=== PATIENT | female | born 1985 | race Caucasian/White ===

== ENCOUNTER 2017-08-17 00:22 | Emergency (ER) | payer MEDICAID ==
[2017-08-17] MEDS ORDERED: HYDROCODONE/APAP 7.5/325MG TABLET PO ONE ×2 (00:27→01:10)
--- NOTE | 2017-08-17 00:34 | Emergency Department Record ---
History of Present Illness - General Chief Complaint: Fall Injury Time Seen by Provider: 08/17/17 00:26 Source: Patient Mode of Arrival: Wheelchair Limitations: No limitations - History of Present Illness Initial Comments: 32 yo female presents with left foot and ankle pain. She slipped on stairs and injured her left foot and ankle. She denies any other injuries. She was going down the steps and injured the foot and ankle. No prior left lank or foot injures. MD Complaint: Fall Onset/Timin -: Hour(s) Fall From: Down stairs (#) When Fall Occurred: 1 hour [facility] Fall Witnessed: No Place Fall Occurred: Home Loss of Consciousness: None Prolonged Down Time?: No Symptoms Prior to Fall: None Location - Extremities: Left: Ankle, Foot Severity: Mild Severity scale (1-10): >10 Quality: Aching Associated Symptoms: Unable to walk - Grace Coma Scale Eye Response: (4) Open spontaneously Motor Response: (6) Obeys commands Verbal Response: (5) Oriented Grace Total: 15 - Related Data Previous Rx's Medication Instructions Recorded Hydrocodone/Acetaminophen [[place] 1 each PO Q6H #15 tablet 08/17/17 5-325 Tablet] Allergies Allergy/AdvReac Type Severity Reaction Status Date / Time metoclopramide HCl Allergy Severe HYPERSENSIT Verified 08/17/17 00:28 [From Reglan] IVITY nifedipine [From Procardia] AdvReac "jittery" Verified 08/17/17 00:28 Travel Screening - Travel/Exposure Within Last 30 Days Have you traveled within the last 30 days?: No - Travel/Exposure Within Last Year Have you traveled outside the [place] in the last year?: No - Additonal Travel Details Have you been exposed to anyone with a communicable illness?: No - Travel Symptoms Symptom Screening: None Review of Systems Constitutional: Denies: Chills, Fever, Malaise, Weakness Eyes: Denies: Eye discharge, Eye pain ENT: Reports: Congestion Respiratory: Reports: Cough (recent influenza A) Cardiovascular: Denies: Chest pain, Syncope Endocrine: Denies: Fatigue Gastrointestinal: Denies: Abdominal pain, Diarrhea, Nausea, Vomiting Genitourinary: Denies: Dysuria, Urgency Musculoskeletal: Reports: As per HPI, Arthralgia. Denies: Back pain, Joint swelling, Myalgia, Neck pain Skin: Reports: Bruising (lateral ankle). Denies: Change in color, Rash Neurological: Reports: Tingling (4th and 5fth toe). Denies: Confusion, Headache , Weakness Psychiatric: Denies: Anxiety Hematological/Lymphatic: Denies: Blood Clots, Easy bleeding, Easy bruising, Swollen glands Past Medical History - SOCIAL HISTORY Smoking Status: Former smoker Alcohol Use: None Drug Use: None - RESPIRATORY Hx Respiratory Disorders: No - CARDIOVASCULAR Hx Cardio Disorders: No - NEURO Hx Neuro Disorders: Yes Hx Headaches: Yes - GI Hx GI Disorders: No - Hx Genitourinary Disorders: Yes Hx Kidney Stones: Yes Hx UTI: Yes - ENDOCRINE Hx Endocrine Disorders: No Hx Diabetes: No Hx Thyroid Disease: No - MUSCULOSKELETAL Hx Musculoskeletal Disorders: No - PSYCH Hx Psych Problems: Yes Hx Anxiety: Yes - HEMATOLOGY/ONCOLOGY Hx Hematology/Oncology Disorders: No Family Medical History Any Significant Family History?: Yes Hx Diabetes: Grandparents Physical Exam - General General Appearance: Alert, Oriented x3, Cooperative, No acute distress Limitations: No limitations - Head Head exam: Atraumatic, Normocephalic, Normal inspection Head exam detail: negative: Abrasion, Contusion, Hematoma, Laceration - Eye Eye exam: Normal appearance. negative: Conjunctival injection - ENT ENT exam: Normal exam, Mucous membranes moist Ear exam: Normal external inspection Nasal Exam: Normal inspection Mouth exam: Normal external inspection Teeth exam: Normal inspection Throat exam: Normal inspection - Neck Neck exam: Normal inspection, Full ROM. negative: Tenderness - Respiratory Respiratory exam: Normal lung sounds bilaterally. negative: Respiratory distress - Cardiovascular Cardiovascular Exam: Regular rate, Normal rhythm, Normal heart sounds Peripheral Pulses: 2+: Dorsalis Pedis (L) - GI/Abdominal GI/Abdominal exam: Soft. negative: Tenderness - Rectal Rectal exam: Deferred - exam: Deferred - Extremities Extremities exam: Joint swelling, Normal capillary refill, Tenderness, Other ( Intact skin). negative: Normal inspection (lateral ankle bruising), Calf tenderness Image of Feet: 1 - mild lateral swelling with tenderness to lateral ankle - Back Back exam: Denies: CVA tenderness (R), CVA tenderness (L), Paraspinal tenderness , Tenderness, Vertebral tenderness - Neurological Neurological exam: Alert, Oriented X3. negative: Motor sensory deficit - Psychiatric Psychiatric exam: Normal affect, Normal mood - Skin Skin exam: Dry, Intact, Normal color, Warm. negative: Abrasion, Cyanosis, Mottled Type of lesion: negative: abrasion, Laceration Course - Reevaluation(s) Reevaluation #1: 08/17/17 01:03 The XR of the foot and ankle were reviewed The preliminary read is no acute fracture or dislocation She will be splinted and made NWB until pain free and awaiting final radiology read. 08/17/17 01:14 The donJoy was placed with good position and comfort. Disposition Disposition: Discharge Clinical Impression: Sprain of foot, left Qualifiers: Encounter type: initial encounter Qualified Code(s): S93.602A - Unspecified sprain of left foot, initial encounter Ankle sprain Qualifiers: Encounter type: initial encounter Involved ligament of ankle: unspecified ligament Laterality: left Qualified Code(s): S93.402A - Sprain of unspecified ligament of left ankle, initial encounter Disposition: Home, Self-Care Condition: (1) Good Instructions: Ankle Sprain (ED) Additional Instructions: Ice and elevate The final read by the radiologist will occur in the morning. You will be contacted with any differences in interpretation. Use the boot and crutches for support and comfort Call your doctor for a recheck of the ankle in the next week Prescriptions: Hydrocodone/Acetaminophen [[place] 5-325 Tablet] 1 each PO Q6H #15 tablet Forms: Patient Portal Access Time of Disposition: 01:05 Quality - Quality Measures Quality Measures: N/A - Blood Pressure Screening Does Patient Have Any of the Following: No Blood Pressure Classification: Hypertensive Reading Systolic Measurement: 161 Diastolic Measurement: 76 Screening for High Blood Pressure: < Pre-Hypertensive BP, F/U Documented > [ G8950] Pre-Hypertensive Follow-up Interventions: Referral to alternative/primary care provider.
--- NOTE | 2017-08-17 21:39 | RADIOLOGY REPORT ---
EXAM: ANKLE LEFT 3 VIEWS HISTORY: PATIENT FELL DOWN STEPS TONIGHT WITH PAIN LEFT ANKLE AND FOOT. TECHNIQUE: Three views left ankle. COMPARISON: No prior left ankle series. ENCOUNTER: Initial. FINDINGS: No definite fracture or dislocation of the left ankle evident. Small plantar calcaneal spur. IMPRESSION: SMALL PLANTAR CALCANEAL SPUR. NO DEFINITE FRACTURE OF THE LEFT ANKLE IDENTIFIED. JOB NUMBER: [id number] MTDD
--- NOTE | 2017-08-17 21:41 | RADIOLOGY REPORT ---
EXAM: FOOT, LEFT 3 VIEWS HISTORY: PATIENT FELL DOWN STEPS TONIGHT WITH PAIN LEFT FOOT AND ANKLE . TECHNIQUE: Three views left foot. COMPARISON: No prior left foot series. ENCOUNTER: Initial. FINDINGS: There is a small plantar calcaneal spur. The left foot appears otherwise negative. No definite fracture of the left foot identified and no dislocation seen. No prominent focal soft tissue swelling evident. IMPRESSION: 1. SMALL PLANTAR CALCANEAL SPUR. 2. NO DEFINITE FRACTURE OF THE LEFT FOOT IDENTIFIED. JOB NUMBER: [id number] [facility]
== END 2017-08-17 01:38 | disposition home or self-care (01) ==
LOC: ER 00:22
DX: S93.602A Unspecified sprain of left foot, initial encounter (principal); S93.402A Sprain of unspecified ligament of left ankle, initial encounter; W10.9XXA Fall (on) (from) unspecified stairs and steps, initial encounter; Y92.009 Unspecified place in unspecified non-institutional (private) residence as the place of occurrence of the external cause
CPT/HCPCS: 99283

== ENCOUNTER 2017-11-20 21:42 | Emergency (ER) | payer MEDICAID ==
[2017-11-20 22:28] LABS: URINE APPEARANCE CLEAR; URINE BILIRUBIN NEGATIVE (NEGATIVE); URINE BLOOD NEGATIVE (NEGATIVE); URINE COLOR YELLOW; URINE GLUCOSE (UA) NEGATIVE (NEGATIVE); URINE KETONE NEGATIVE (NEGATIVE); URINE LEUKOCYTE ESTERASE NEGATIVE (NEGATIVE); URINE NITRITE NEGATIVE (NEGATIVE); URINE PROTEIN NEGATIVE (NEGATIVE); URINE UROBILINOGEN 0.2 E.U./dL (0.20 - 1.00)
[2017-11-20 22:29] LABS: BASO % 0.2 % (0-6); GRAN % 61.8 % (47-80); HEMATOCRIT 42.4 % (35.0-47.0); HEMOGLOBIN 14.2 gm/dl (11.6-16.0); LYMPH % 30.5 % (16-45); MEAN CELL VOLUME 93.8 fl (81-97); MEAN CORPUSCULAR HEMOGLOBIN 31.4 pg (27-33); MEAN CORPUSCULAR HGB CONC 33.5 g/dl (32-36); MEAN PLATELET VOLUME 10.2 fl (7.4-10.4); MONO % 5.5 % (0-9); PLATELET COUNT 302 K/uL (130-400); RED BLOOD COUNT 4.52 M/uL (3.80-5.40); RED CELL DISTRIBUTION WIDTH 13.5 % (11.5-14.5); WHITE BLOOD COUNT W/O DIFF 8.4 K/uL (4.2-12.2)
[2017-11-20] MEDS: 0.9 % SODIUM CHLORIDE 1,000 ML BAG IV ONE (22:30)
[2017-11-20] MEDS: PROMETHAZINE HCL 25 MG/ML VIAL IV ONE (22:30)
[2017-11-20 22:32] LABS: HCG,QUALITATIVE URINE NEGATIVE (NEGATIVE)
[2017-11-20 22:41] LABS: BLOOD UREA NITROGEN 22 mg/dL (6-20); CREATININE 0.7 mg/dL (0.5-0.9); EST GLOMERULAR FILTRATION RATE > 60 mL/min
[2017-11-20 22:43] LABS: GLUCOSE,RANDOM 116 mg/dL (74-109)
[2017-11-20 22:46] LABS: ALKALINE PHOSPHATASE 72 U/L (35-104); ALT/SGPT 22 U/L (<33); AST/SGOT 18 U/L (10.0-35.0); LIPASE 113 U/L (13-60)
[2017-11-20 22:47] LABS: ALB/GLOB RATIO 1.4 (1.1-1.8); ALBUMIN 4.1 g/dL (4.0-5.0)
[2017-11-20] MEDS: KETOROLAC 30 MG/ML VIAL IVP ONE (23:01)
[2017-11-21] MEDS: HYDROMORPHONE HCL 2 MG/ML VIAL IVP ONE (00:03)
--- NOTE | 2017-11-21 00:09 | Emergency Department Record ---
History of Present Illness - General Chief Complaint: Abdominal Pain Stated Complaint: ADOMINAL PAIN,DRY HEAVES Time Seen by Provider: 11/20/17 21:43 Source: Patient Mode of Arrival: Ambulatory Limitations: No limitations - History of Present Illness Initial Comments: pt had a facet injection yesterday of steroids. today she developed ap in the mid epigastrum and vomiting. MD Complaint: Abdominal pain Onset/Timin -: Hour(s) Location: Diffuse Severity scale (1-10): 10 Quality: Other Consistency: Constant Improves With: Nothing Worsens With: Other Context: Recent surgery/procedure Associated Symptoms: Nausea - Related Data LMP Date: 11/03/17 Patient : No Home Medications Medication Instructions Recorded Confirmed Last Taken Ketorolac Tromethamine 10 mg PO DAILY PRN 11/20/17 11/20/17 Unknown Previous Rx's Medication Instructions Recorded Hydrocodone/APAP 5/325Mg [[place] 1 each PO Q6H #10 tab 11/21/17 5Mg/325Mg] Promethazine HCl [Phenergan] 25 mg PO BID #10 tablet 11/21/17 Allergies Allergy/AdvReac Type Severity Reaction Status Date / Time metoclopramide HCl Allergy Severe HYPERSENSIT Verified 11/20/17 21:47 [From Reglan] IVITY nifedipine [From Procardia] AdvReac "jittery" Verified 11/20/17 21:47 Travel Screening - Travel/Exposure Within Last 30 Days Have you traveled within the last 30 days?: No - Travel Symptoms Symptom Screening: None Review of Systems Reviewed: No additional complaints except as noted below Constitutional: Reports: As per HPI. Denies: Chills, Fever, Malaise, Night sweats, Weakness, Weight change Eyes: Reports: As per HPI. Denies: Eye discharge, Eye pain, Photophobia, Vision change ENT: Reports: As per HPI. Denies: Congestion, Dental pain, Ear pain, Epistaxis , Hearing loss, Throat pain Respiratory: Reports: As per HPI. Denies: Cough, Dyspnea, Hemoptysis, Stridor, Wheezes Cardiovascular: Reports: As per HPI. Denies: Arrhythmia, Chest pain, Dyspnea on exertion, Edema, Murmurs, Orthopnea, Palpitations, Paroxysmal nocturnal dyspnea, Rheumatic Fever, Syncope Endocrine: Reports: As per HPI. Denies: Fatigue, Heat or cold intolerance, Polydipsia, Polyuria Gastrointestinal: Reports: As per HPI, Abdominal pain, Nausea, Vomiting. Denies : Constipation, Diarrhea, Hematemesis, Hematochezia, Melena Genitourinary: Reports: As per HPI. Denies: Abnormal menses, Discharge, Dyspareunia, Dysuria, Frequency, Hematuria, Incontinence, Retention, Urgency Musculoskeletal: Reports: As per HPI. Denies: Arthralgia, Back pain, Gout, Joint swelling, Myalgia, Neck pain Skin: Reports: As per HPI. Denies: Bruising, Change in color, Change in hair/ nails, Lesions, Pruritus, Rash Neurological: Reports: As per HPI. Denies: Abnormal gait, Confusion, Headache, Numbness, Paresthesias, Seizure, Tingling, Tremors, Vertigo, Weakness Psychiatric: Reports: As per HPI. Denies: Anxiety, Auditory hallucinations, Depression, Homicidal thoughts, Suicidal thoughts, Visual hallucinations Hematological/Lymphatic: Reports: As per HPI. Denies: Anemia, Blood Clots, Easy bleeding, Easy bruising, Swollen glands Past Medical History - SOCIAL HISTORY Smoking Status: Former smoker - RESPIRATORY Hx Respiratory Disorders: No - CARDIOVASCULAR Hx Cardio Disorders: No - NEURO Hx Neuro Disorders: Yes Hx Headaches: Yes - GI Hx GI Disorders: No - Hx Genitourinary Disorders: Yes Hx Kidney Stones: Yes Hx UTI: Yes - ENDOCRINE Hx Endocrine Disorders: No Hx Diabetes: No Hx Thyroid Disease: No - MUSCULOSKELETAL Hx Musculoskeletal Disorders: Yes Hx Fibromyalgia: Yes - PSYCH Hx Psych Problems: Yes Hx Anxiety: Yes - HEMATOLOGY/ONCOLOGY Hx Hematology/Oncology Disorders: No Family Medical History Any Significant Family History?: Yes Hx Diabetes: Grandparents Physical Exam - General General Appearance: Alert, Oriented x3, Cooperative, Mild distress - Head Head exam: Normal inspection - Eye Eye exam: Normal appearance, PERRL, EOMI Pupils: Normal accommodation - ENT ENT exam: Normal exam, Mucous membranes moist, Normal external ear exam, Normal orophraynx Ear exam: Normal external inspection. negative: External canal tenderness Nasal Exam: Normal inspection. negative: Discharge, Sinus tenderness Mouth exam: Normal external inspection, Tongue normal Teeth exam: Normal inspection. negative: Dental caries Throat exam: Normal inspection. negative: Tonsillar erythema, Tonsillar exudate - Neck Neck exam: Normal inspection, Full ROM. negative: Tenderness - Respiratory Respiratory exam: Normal lung sounds bilaterally. negative: Respiratory distress - Cardiovascular Cardiovascular Exam: Regular rate, Normal rhythm, Normal heart sounds - GI/Abdominal GI/Abdominal exam: Soft, Normal bowel sounds, Tenderness - Rectal Rectal exam: Deferred - exam: Deferred - Extremities Extremities exam: Normal inspection, Full ROM, Normal capillary refill. negative: Tenderness - Back Back exam: Reports: Normal inspection, Full ROM. Denies: Muscle spasm, Rash noted, Tenderness - Neurological Neurological exam: Alert, Normal gait, Oriented X3, Reflexes normal - Psychiatric Psychiatric exam: Normal affect, Normal mood - Skin Skin exam: Dry, Intact, Normal color, Warm Course Vital Signs 11/20/17 11/20/17 21:47 23:02 Temperature 98.9 F Pulse Rate [ 107 H 80 Pulse Ox Probe] Respiratory 20 16 Rate Blood Pressure 144/88 [Left Arm] Blood Pressure 111/66 [Right Arm] Pulse Ox 97 97 - Reevaluation(s) Reevaluation #1: 11/21/17 00:06 pt feels better Medical Decision Making - Lab Data Result diagrams: 11/20/17 22:21 11/20/17 22:21 Lab Results 11/20/17 11/20/17 11/20/17 Range/Units 22:21 22:21 22:21 WBC 8.4 (4.2-12.2) K/uL RBC 4.52 (3.80-5.40) M/uL Hgb 14.2 (11.6-16.0) gm/dl Hct 42.4 (35.0-47.0) % MCV 93.8 (81-97) fl MCH 31.4 (27-33) pg MCHC 33.5 (32-36) g/dl RDW 13.5 (11.5-14.5) % Plt Count 302 (130-400) K/uL MPV 10.2 (7.4-10.4) fl Gran % 61.8 (47-80) % Lymphocytes % 30.5 (16-45) % Monocytes % 5.5 (0-9) % Eosinophils % 2.0 (0-6) % Basophils % 0.2 (0-6) % Sodium 142 (136-145) mmol/L Potassium 3.7 (3.4-4.5) mmol/L Chloride 101 (98-107) mmol/L Carbon Dioxide 25.0 (22-29) mmol/L Anion Gap 16.0 (7-16) BUN 22 H (6-20) mg/dL Creatinine 0.7 (0.5-0.9) mg/dL Estimated GFR > 60 mL/min Random Glucose 116 H (74-109) mg/dL Calcium 9.2 (8.6-10.0) mg/dL Total Bilirubin 0.20 (0.2-1.0) mg/dL AST 18 (10.0-35.0) U/L ALT 22 (<33) U/L Alkaline Phosphatase 72 (35-104) U/L Total Protein 7.0 (6.6-8.7) g/dL Albumin 4.1 (4.0-5.0) g/dL Globulin 2.9 (1.4-4.8) gm/dL Albumin/Globulin Ratio 1.4 (1.1-1.8) Lipase 113 H (13-60) U/L Urine Color Yellow Urine Appearance Clear Urine pH 6.0 (5.0-8.0) Ur Specific [place] >= 1.030 (1.002-1.030) Urine Protein Negative (NEGATIVE) Urine Glucose (UA) Negative (NEGATIVE) Urine Ketones Negative (NEGATIVE) Urine Blood Negative (NEGATIVE) Urine Nitrite Negative (NEGATIVE) Urine Bilirubin Negative (NEGATIVE) Urine Urobilinogen 0.2 (0.20 - 1.00) E.U./dL Ur Leukocyte Esterase Negative (NEGATIVE) Urine HCG, Qual Negative (NEGATIVE) Disposition Disposition: Discharge Clinical Impression: Acute pancreatitis Qualifiers: Pancreatitis type: unspecified pancreatitis type Acute pancreatitis complication: unspecified Qualified Code(s): K85.90 - Acute pancreatitis without necrosis or infection, unspecified Disposition: Home, Self-Care Condition: (1) Good Instructions: Pancreatitis (ED) Additional Instructions: follow up tomorrow with family doctor. return sooner if worse, clear liquids only for 24 hrs. Prescriptions: Hydrocodone/APAP 5/325Mg [[place] 5Mg/325Mg] 1 each PO Q6H #10 tab Promethazine HCl [Phenergan] 25 mg PO BID #10 tablet Quality - Quality Measures Quality Measures: N/A - Blood Pressure Screening Does Patient Have Any of the Following: No Blood Pressure Classification: Normal BP Reading Systolic Measurement: 111 Diastolic Measurement: 66 Screening for High Blood Pressure: < Normal BP, F/U Not Required > [G1466]
--- NOTE | 2017-11-21 13:05 | CT SCAN REPORT ---
EXAM: CT OF THE ABDOMEN AND PELVIS WITHOUT CONTRAST HISTORY: ABDOMINAL PAIN. TECHNIQUE: Sequential axial images were obtained from the diaphragms through the ischiorectal fossa without intravenous or oral contrast administration. FINDINGS: The visualized lung bases appear normal. The nonopacified liver, gallbladder, pancreas and spleen appear normal. The adrenal glands and kidneys appear normal. No CT findings suggestive of obstructive uropathy. The small bowel appears normal. The colon appears normal. The appendix is visualized and appears normal. The urinary bladder appears normal. The uterus and adnexal structures are normal. The osseous structures are normal. IMPRESSION: 1. NO ACUTE ABDOMINAL OR PELVIC DISEASE PROCESS. 2. THE APPENDIX IS VISUALIZED AND APPEARS NORMAL. JOB NUMBER: [id number] MTDD
== END 2017-11-21 00:41 | disposition home or self-care (01) ==
LOC: ER 21:42
DX: K85.90 Acute pancreatitis without necrosis or infection, unspecified (principal); R10.13 Epigastric pain; R11.2 Nausea with vomiting, unspecified
CPT/HCPCS: 74176; 80053; 81003; 81025; 83690; 85025; 96361; 96374; 96375; 99284; J1885; J2550; J7030

== ENCOUNTER 2017-11-24 19:43 | Emergency (ER) | payer MEDICAID ==
[2017-11-24] MEDS ORDERED: 0.9 % SODIUM CHLORIDE 1,000 ML BAG IV ONE (20:02)
[2017-11-24] MEDS ORDERED: ONDANSETRON HCL IV 4 MG/2 ML VIAL IV ONE (20:02)
--- NOTE | 2017-11-24 20:07 | Emergency Department Record ---
History of Present Illness - General Chief Complaint: Palpitations Stated Complaint: HEART PALP/NAUSEA,VOMITING Time Seen by Provider: 11/24/17 19:55 Source: Patient Mode of Arrival: Ambulatory Limitations: No limitations - History of Present Illness Initial Comments: The patient is here due to feeling palpitations with nausea for about 90 minutes. She denies any pain or SOB but does feel very anxious. The patient has had a recent issue with mild pancreatitis and was in the ER 4 days ago for pain and vomiting and did have a normal CT. She was doing better but then tried to advance her diet today and developed worsening nausea with the palpitations. There has been no vomiting or diarrhea. MD Complaint: Palpitations Onset/Timin -: Minutes(s) Context: Occurred during rest Associated Symptoms: Anxiety, Nausea/vomiting Treatment Prior to Arrival Comment:: none - Related Data Previous Rx's Medication Instructions Recorded Hydrocodone/APAP 5/325Mg [[place] 1 each PO Q6H #10 tab 11/21/17 5Mg/325Mg] Promethazine HCl [Phenergan] 25 mg PO BID #10 tablet 11/21/17 Promethazine HCl [Phenergan] 25 mg PO BID #14 tablet 11/24/17 Sucralfate [Carafate] 1 gm PO QID #28 tablet 11/24/17 Allergies Allergy/AdvReac Type Severity Reaction Status Date / Time metoclopramide HCl Allergy Severe HYPERSENSIT Verified 11/24/17 19:48 [From Reglan] IVITY nifedipine [From Procardia] AdvReac "jittery" Verified 11/24/17 19:48 Travel Screening - Travel/Exposure Within Last 30 Days Have you traveled within the last 30 days?: No - Travel/Exposure Within Last Year Have you traveled outside the [place] in the last year?: No - Additonal Travel Details Have you been exposed to anyone with a communicable illness?: No - Travel Symptoms Symptom Screening: None Review of Systems Constitutional: Denies: Chills, Fever Eyes: Denies: Eye discharge ENT: Denies: Congestion Respiratory: Denies: Cough, Dyspnea Cardiovascular: Denies: Arrhythmia, Chest pain Endocrine: Reports: Fatigue Gastrointestinal: Reports: Abdominal pain, Nausea. Denies: Diarrhea, Vomiting Genitourinary: Denies: Dysuria Musculoskeletal: Denies: Arthralgia Past Medical History - SOCIAL HISTORY Smoking Status: Former smoker Alcohol Use: None Drug Use: None - RESPIRATORY Hx Respiratory Disorders: No - CARDIOVASCULAR Hx Cardio Disorders: Yes Comment:: heart murmur when little - NEURO Hx Neuro Disorders: Yes Hx Headaches: Yes - GI Hx GI Disorders: No - Hx Genitourinary Disorders: Yes Hx Kidney Stones: Yes Hx UTI: Yes - ENDOCRINE Hx Endocrine Disorders: No Hx Diabetes: No Hx Thyroid Disease: No - MUSCULOSKELETAL Hx Musculoskeletal Disorders: Yes Hx Fibromyalgia: Yes - PSYCH Hx Psych Problems: Yes Hx Anxiety: Yes - HEMATOLOGY/ONCOLOGY Hx Hematology/Oncology Disorders: No Family Medical History Any Significant Family History?: No Hx Diabetes: Grandparents Physical Exam - General General Appearance: Alert, Oriented x3, Cooperative, No acute distress - Head Head exam: Atraumatic, Normocephalic, Normal inspection - Eye Eye exam: Normal appearance, PERRL - ENT Throat exam: Normal inspection. negative: Tonsillar erythema, Tonsillar exudate - Neck Neck exam: Normal inspection, Full ROM. negative: Tenderness - Respiratory Respiratory exam: Normal lung sounds bilaterally. negative: Respiratory distress - Cardiovascular Cardiovascular Exam: Regular rate, Normal rhythm, Normal heart sounds, Tachycardia - GI/Abdominal GI/Abdominal exam: Soft, Normal bowel sounds, Tenderness (There is very mild upper abdominal tenderness.) - Extremities Extremities exam: Normal inspection, Full ROM, Normal capillary refill. negative: Tenderness Course Vital Signs 11/24/17 19:48 Temperature 97.9 F Pulse Rate 120 H Respiratory 24 Rate Blood Pressure 139/79 Pulse Ox 100 - Reevaluation(s) Reevaluation #1: The patient is doing a lot better at this time. She denies any significant AP, nausea, or vomiting. On exam her abdomen is very soft with no significant tenderness in all 4 quads. I did discuss the lab results with her and the need for F/U with her PCP. Due to the recent issues I will place an order for a GI consult in the [facility]. 11/24/17 21:00 Medical Decision Making - Data Complexity MDM Data: Labs Ordered and/or Reviewed, EKG Ordered and/or Reviewed - Lab Data Result diagrams: 11/24/17 20:20 11/24/17 20:20 - EKG Data -: EKG Interpreted by Me EKG: No Acute Changes, Normal EKG Disposition Disposition: Discharge Clinical Impression: Nausea, Heart palpitations Disposition: Home, Self-Care Condition: (2) Stable Instructions: Heart Palpitations (ED) Additional Instructions: Please continue your regular medicines and eat a very bland diet. Please slowly advance your diet. Take the Phenergan and Carafate as directed and see your family doctor next week if needed. Please return to the ER for any worsening symptoms, pain, fever, or vomiting. Prescriptions: Promethazine HCl [Phenergan] 25 mg PO BID #14 tablet Sucralfate [Carafate] 1 gm PO QID #28 tablet Referrals: [facility] [Provider Group] Forms: Patient Portal Access Time of Disposition: 21:04 Quality - Quality Measures Quality Measures: N/A - Blood Pressure Screening View Details: Yes Does Patient Have Any of the Following: No Blood Pressure Classification: Pre-Hypertensive BP Reading Systolic Measurement: 139 Diastolic Measurement: 79 Screening for High Blood Pressure: < Pre-Hypertensive BP, F/U Documented > [ G8950] Pre-Hypertensive Follow-up Interventions: Referral to alternative/primary care provider.
[2017-11-24] MEDS ORDERED: LORAZEPAM 2 MG/ML VIAL IV ONE (20:10)
[2017-11-24 20:28] LABS: BASO % 0.5 % (0-6); GRAN % 70.6 % (47-80); HEMATOCRIT 44.6 % (35.0-47.0); HEMOGLOBIN 14.8 gm/dl (11.6-16.0); LYMPH % 24.5 % (16-45); MEAN CELL VOLUME 94.3 fl (81-97); MEAN CORPUSCULAR HEMOGLOBIN 31.3 pg (27-33); MEAN CORPUSCULAR HGB CONC 33.2 g/dl (32-36); MEAN PLATELET VOLUME 10.3 fl (7.4-10.4); MONO % 3.4 % (0-9); PLATELET COUNT 297 K/uL (130-400); RED BLOOD COUNT 4.73 M/uL (3.80-5.40); RED CELL DISTRIBUTION WIDTH 13.5 % (11.5-14.5); WHITE BLOOD COUNT W/O DIFF 7.7 K/uL (4.2-12.2)
[2017-11-24 20:41] LABS: BLOOD UREA NITROGEN 16 mg/dL (6-20)
[2017-11-24 20:42] LABS: CREATININE 0.5 mg/dL (0.5-0.9); EST GLOMERULAR FILTRATION RATE > 60 mL/min; TOTAL PROTEIN 7.5 g/dL (6.6-8.7)
[2017-11-24 20:44] LABS: GLUCOSE,RANDOM 141 mg/dL (74-109)
[2017-11-24 20:47] LABS: ALBUMIN 4.6 g/dL (4.0-5.0); ALKALINE PHOSPHATASE 81 U/L (35-104); ALT/SGPT 55 U/L (<33); AST/SGOT 26 U/L (10.0-35.0); BILIRUBIN,DIRECT < 0.2 mg/dL (0-0.3); LIPASE 81 U/L (13-60)
[2017-11-24] MEDS ORDERED: LORAZEPAM 0.5 MG TABLET PO ONE (21:15)
== END 2017-11-24 21:28 | disposition home or self-care (01) ==
LOC: ER 19:43
DX: R00.2 Palpitations (principal); R11.0 Nausea; R10.10 Upper abdominal pain, unspecified; Z87.891 Personal history of nicotine dependence
CPT/HCPCS: 99284 ×2; 96374; 96375; 83690; 85025; 80076; 80048; 84703; 93005; 93010; J2405; J2060; J7030

== ENCOUNTER 2018-04-15 01:10 | Emergency (ER) | payer MEDICAID ==
[2018-04-15] MEDS ORDERED: 0.9 % SODIUM CHLORIDE 1,000 ML BAG IV ONE (01:27)
[2018-04-15] MEDS ORDERED: ONDANSETRON HCL IV 4 MG/2 ML VIAL IV ONE (01:27)
[2018-04-15] MEDS ORDERED: KETOROLAC 30 MG/ML VIAL IVP ONE ×2 (01:28→02:13)
--- NOTE | 2018-04-15 01:33 | Emergency Department Record ---
History of Present Illness - General Chief Complaint: Abdominal Pain Stated Complaint: GALL BLADDER PAIN Time Seen by Provider: 04/15/18 01:15 Source: Patient Mode of Arrival: Ambulatory Limitations: No limitations - History of Present Illness Initial Comments: The patient is here due to RUQ stabbing pain that began after she ate dinner last evening. The patient has a hx of chronic AP mainly after eating for the last 6 months but this episode is slightly worse than normal. She does see Dr. Britton for it and he has recently ordered an Abd US and Hida scan. The US was performed on 04/03/18 and was essentially negative. She then had a Hida Scan on 04/04/18 that did demonstrate a relatively low ejection fraction of 10%. The patient does have an appointment scheduled again with Dr. Britton and also is scheduled to see Dr. Ludwig to discuss the possibility of surgery. The patient denies any recent fever, back pain, dysuria, or hematuria. MD Complaint: Abdominal pain Onset/Timin -: Hour(s) Location: RUQ Radiation: Back Severity scale (1-10): >10 Quality: Sharp, Stabbing Consistency: Constant - Related Data LMP (females 10-50): 3 weeks ago Previous Rx's Medication Instructions Recorded Ondansetron [Zofran Odt] 4 mg SL .Q4-6H PRN #10 tab.rapdis 04/15/18 Allergies Allergy/AdvReac Type Severity Reaction Status Date / Time metoclopramide HCl Allergy Severe HYPERSENSIT Verified 04/15/18 01:29 [From Reglan] IVITY nifedipine [From Procardia] AdvReac "jittery" Verified 04/15/18 01:29 Travel Screening - Travel/Exposure Within Last 30 Days Have you traveled within the last 30 days?: No - Travel Symptoms Symptom Screening: None Review of Systems Constitutional: Denies: Chills, Fever Eyes: Denies: Eye discharge ENT: Denies: Congestion Respiratory: Denies: Cough, Dyspnea Past Medical History - SOCIAL HISTORY Smoking Status: Former smoker Alcohol Use: None Drug Use: None - RESPIRATORY Hx Respiratory Disorders: No - CARDIOVASCULAR Hx Cardio Disorders: Yes Comment:: heart murmur when little - NEURO Hx Neuro Disorders: Yes Hx Headaches: Yes - GI Hx GI Disorders: No - Hx Genitourinary Disorders: Yes Hx Kidney Stones: Yes Hx UTI: Yes - ENDOCRINE Hx Endocrine Disorders: No Hx Diabetes: No Hx Thyroid Disease: No - MUSCULOSKELETAL Hx Musculoskeletal Disorders: Yes Hx Fibromyalgia: Yes - PSYCH Hx Psych Problems: Yes Hx Anxiety: Yes - HEMATOLOGY/ONCOLOGY Hx Hematology/Oncology Disorders: No Family Medical History Any Significant Family History?: No Hx Diabetes: Grandparents Physical Exam - General General Appearance: Alert, Oriented x3, Cooperative, No acute distress - Head Head exam: Atraumatic, Normocephalic, Normal inspection - Eye Eye exam: Normal appearance, PERRL, EOMI - Neck Neck exam: Normal inspection, Full ROM. negative: Tenderness - Respiratory Respiratory exam: Normal lung sounds bilaterally. negative: Respiratory distress - Cardiovascular Cardiovascular Exam: Regular rate, Normal rhythm, Normal heart sounds - GI/Abdominal GI/Abdominal exam: Soft, Tenderness (There is mild RUQ tenderness.). negative: Distended, Guarding, Hernia, Rebound, Rigid - Extremities Extremities exam: Normal inspection, Full ROM, Normal capillary refill. negative: Tenderness - Neurological Neurological exam: Alert. negative: Motor sensory deficit Course Vital Signs 04/15/18 01:14 Temperature 98.1 F Pulse Rate 123 H Respiratory 18 Rate Blood Pressure 145/94 Pulse Ox 98 - Reevaluation(s) Reevaluation #1: I did discuss the lab results with the patient. There is no evidence for acute cholycystitis due to the normal WBC and LFT results. The patient does have mild elevation of her Lipase but that appears to be a chronic issue for her. She has had similar levels 2 other times in the ED, once with AP and once without. She also had a neg CT with one of the episodes of mild elevation of her Lipase. Due to that fact I do believe the mild elevation is normal for her. 04/15/18 02:24 Reevaluation #2: The patient is doing better at this time but is still having mild pain. Due to that fact I will give her a small dose of Dilaudid for pain management. 04/15/18 02:43 Reevaluation #3: The patient is doing a lot better at this time. Her pain has basically resolved and she is resting comfortably. On exam her abdomen is very soft and nontender in all 4 quads. I did discuss the need to return to the ER for any persistent or worsening pain, fever, or vomiting. I did discuss the reason to return is to recheck the Lipase and possibly order another abdominal US. 04/15/18 03:10 04/15/18 03:14 Medical Decision Making - Lab Data Result diagrams: 04/15/18 01:35 04/15/18 01:35 Disposition Disposition: Discharge Clinical Impression: Chronic abdominal pain Disposition: Home, Self-Care Condition: (2) Stable Instructions: Abdominal Pain (ED) Additional Instructions: Please continue your regular medicines and use the Zofran if needed. Please return to the ER in 8-10 hours for any persistent or worsening pain, or for any fever, or vomiting. If the pain does resolve please see your family doctor of GI Specialist this week for recheck. Prescriptions: Ondansetron [Zofran Odt] 4 mg SL .Q4-6H PRN #10 tab.rapdis PRN Reason: Nausea Forms: Patient Portal Access Time of Disposition: 03:13 Quality - Quality Measures Quality Measures: N/A - Blood Pressure Screening View Details: Yes Does Patient Have Any of the Following: No Blood Pressure Classification: Hypertensive Reading Systolic Measurement: 145 Diastolic Measurement: 94 Screening for High Blood Pressure: < First Hypertensive BP, F/U Documented > [ [id number]] First Hypertensive Follow-up Interventions: Referral to alternative/primary care provider.
[2018-04-15] MEDS ORDERED: ACETAMINOPHEN 1,000 MG/100 ML BTL IVPB ONE (01:41)
[2018-04-15 01:43] LABS: BASO % 0.4 % (0-6); GRAN % 55.4 % (47-80); HEMATOCRIT 39.5 % (35.0-47.0); HEMOGLOBIN 12.8 gm/dl (11.6-16.0); LYMPH % 34.2 % (16-45); MEAN CELL VOLUME 94.3 fl (81-97); MEAN CORPUSCULAR HEMOGLOBIN 30.5 pg (27-33); MEAN CORPUSCULAR HGB CONC 32.4 g/dl (32-36); MEAN PLATELET VOLUME 9.9 fl (7.4-10.4); PLATELET COUNT 286 K/uL (130-400); RED BLOOD COUNT 4.19 M/uL (3.80-5.40); RED CELL DISTRIBUTION WIDTH 13.2 % (11.5-14.5)
[2018-04-15 01:52] LABS: BILIRUBIN,TOTAL < 0.20 mg/dL (0.2-1.0); BLOOD UREA NITROGEN 18 mg/dL (6-20); CREATININE 0.7 mg/dL (0.5-0.9); EST GLOMERULAR FILTRATION RATE > 60 mL/min
[2018-04-15 01:53] LABS: TOTAL PROTEIN 6.4 g/dL (6.6-8.7)
[2018-04-15 01:55] LABS: GLUCOSE,RANDOM 148 mg/dL (74-109)
[2018-04-15 01:57] LABS: ALBUMIN 4.1 g/dL (4.0-5.0); ALT/SGPT 18 U/L (<33); AST/SGOT 19 U/L (10.0-35.0); BILIRUBIN,DIRECT < 0.2 mg/dL (0-0.3)
[2018-04-15 01:58] LABS: ALKALINE PHOSPHATASE 77 U/L (35-104); LIPASE 90 U/L (13-60)
[2018-04-15] MEDS ORDERED: POTASSIUM CHLORIDE 20 MEQ TABLET PO ONE (02:02)
[2018-04-15] MEDS ORDERED: HYDROMORPHONE HCL 2 MG/ML VIAL IVP ONE (02:41)
== END 2018-04-15 03:24 | disposition home or self-care (01) ==
LOC: ER 01:10
DX: G89.29 Other chronic pain (principal); R10.11 Right upper quadrant pain; R74.8 Abnormal levels of other serum enzymes; F17.210 Nicotine dependence, cigarettes, uncomplicated
CPT/HCPCS: 99284 ×2; 96365; 96375; 83690; 85025; 80076; 80048; 84703; J1885; J2405; J1170; J7030

== ENCOUNTER 2018-04-22 07:37 | Day surgery (SDC) | payer MEDICAID ==
[~2018-04-22 07:37] MED LIST: ACETAMINOPHEN 1,000 MG/100 ML BTL IV ONE; FAMOTIDINE 20MG TABLET PO ONE; MECLIZINE 25 MG TABLET PO ONE
[2018-04-22] MEDS ORDERED: GLYCOPYRROLATE 0.2 MG/ML ML IV ONE (07:38)
[2018-04-22] MEDS ORDERED: SUCCINYLCHOLINE 20 MG/ML 10ML IVP ONE (07:38)
[2018-04-22] MEDS ORDERED: HYDROMORPHONE HCL 2 MG/ML VIAL IV ONE (07:38)
[2018-04-22] MEDS ORDERED: FENTANYL PF 100MCG/2ML VIAL IV ONE (07:38)
[2018-04-22] MEDS ORDERED: DEXAMETHASONE 4 MG/ML 1ML VIAL IVP ONE (07:38)
[2018-04-22] MEDS ORDERED: PROPOFOL 10 MG/ML VIAL IV ONE (07:38)
[2018-04-22] MEDS ORDERED: ROCURONIUM BROMIDE 50MG/5ML VIAL IV ONE (07:38)
[2018-04-22] MEDS ORDERED: ONDANSETRON HCL IV 4 MG/2 ML VIAL IVP ONE (07:38)
[2018-04-22] MEDS ORDERED: NEOSTIGMINE 1 MG/1 ML,10ML VIAL IV ONE (07:38)
[2018-04-22] MEDS ORDERED: LIDOCAINE 2% MDV (20MG/ML) 20ML VIAL IV ONE (07:38)
[2018-04-22] MEDS ORDERED: BUPIVACAINE 0.25% W/EPI MPF 30ML VIAL IVP ONE (07:38)
[2018-04-22] MEDS ORDERED: DESFLURANE 240 ML BTL INH ONE (07:38)
[2018-04-22] MEDS ORDERED: MIDAZOLAM HCL 2MG/2ML VIAL IV ONE (07:38)
--- NOTE | 2018-04-23 15:20 | Physician Courtesy Letter ---
DATE OF SURGERY: 04/22/2018 Surgeon: Preston Ludwig DO PREOPERATIVE DIAGNOSIS: Symptomatic biliary dyskinesia. POSTOPERATIVE DIAGNOSIS: Symptomatic biliary dyskinesia. OPERATION: Laparoscopic cholecystectomy. Indication: The patient is a 33-year-old female who is having ongoing right subcostal postprandial pain. She had a workup including ultrasound and HIDA scan. Ultrasound was normal. HIDA scan did show an impaired ejection fraction of 11% with reproduced symptoms on Kinevac injection. We did discuss cholecystectomy versus medical management. She desired surgical intervention. Risks include but are not limited to bleeding, infection, ductal injury, possible conversion to open, postoperative bile leak, nonresolution of her symptoms. She understood this fully. PROCEDURE: Thereafter, consent was signed and questions answered. She was taken to the operating room and placed in a supine position. General anesthesia was administered per the department of anesthesia. The patient's abdomen was prepped and draped in the usual sterile fashion. At this time, adequate timeout was performed. She was wearing DVT prophylaxis and did receive IV Ofirmev. The infraumbilical region was anesthetized with a total of 5 mL of 0.25% Sensorcaine with epinephrine. A 2 cm infraumbilical incision was made. This was carried down to the anterior rectus fascia. This was incised. Yoandy clamps were placed on the fascial edges and brought up into the wound. Posterior rectus sheath was identified and incised. The peritoneal cavity was entered bluntly. At this time, a 10 mm blunt Brian port was placed. Adequate pneumoperitoneum was established. Under direct visualization, additional 5 mm epigastric and two 5 mm right subcostal ports were placed. The patient was then rotated into reverse Trendelenburg with rotation to left. The gallbladder was identified. It was retracted in a cephalad and lateral direction opening up the angle of Calot. The hepatocystic triangle was thoroughly dissected out. There was no aberrant anatomy, no posterior ductal structures. The cystic duct and cystic artery were clearly identified. The distal half of the gallbladder was released from the liver plate elongating a retroductal window. We had an excellent critical view of safety. Each one was doubly clipped and cut in a standard fashion. Gallbladder was then taken off the liver bed with the Shelton harmonic. This was extracted through the umbilical port. Right upper quadrant was rechecked and found to be hemostatic. No bleeding. No bile leak. No bowel injury noted. The patient was leveled out. The pneumoperitoneum was released. All ports were removed. The fascia was closed with 0 Vicryl in a [id number] fashion. The skin at all ports was closed with 4-0 Vicryl. The patient was taken to the recovery room in satisfactory condition. FINDINGS AT THE TIME OF SURGERY: Chronic cholecystitis. CC: MD MICHELLE Mcgregor
== END 2018-04-22 10:56 | disposition home or self-care (01) ==
LOC: SUR 07:37
PROVIDERS: ATTEND Surgery
DX: K82.8 Other specified diseases of gallbladder (principal); M79.7 Fibromyalgia
CPT/HCPCS: 47562; 00790; J2405; J3010; J1170; J0330; J2710